=== PATIENT | male | born 1955 | race Caucasian/White ===

== ENCOUNTER 2016-04-30 09:09 | Day surgery (SDC) | payer OTHER ==
[~2016-04-30 09:09] MED LIST: ATORVASTATIN CA20 MG PO; LISINOPRIL10 MG PO; NIASPAN500 MG PO
--- NOTE | 2016-04-30 12:21 | Provider's Discharge Care Plan ---
Problem, Goal, Plan Problem List 1. Diverticulosis
--- NOTE | 2016-04-30 12:21 | Provider's Discharge Care Plan ---
Problem, Goal, Plan Problem List 1. Diverticulosis
--- NOTE | 2016-04-30 14:06 | OPERATIVE REPORT ---
DATE OF SURGERY: 04/30/2016 SURGEON: Walter Shin MD PREOPERATIVE DIAGNOSIS: 1. Colon cancer risk POSTOPERATIVE DIAGNOSES: 1. Diverticulosis coli 2. Possible colitis PROCEDURE PERFORMED: 1. Colonoscopy with biopsies ANESTHESIA: Total IV general. INDICATIONS: The patient is a 60-year-old man undergoing screening colonoscopy. SURGICAL TECHNIQUE: The patient was taken to the endoscopy suite where total IV general was administered and the patient was placed in the left lateral decubitus position. During insertion of the scope, at about 20 cm, just above the rectosigmoid junction, there were multiple small red spots in the mucosa. These were not caused by scope trauma. During withdrawal, these were sampled with the biopsy forceps. Further up the sigmoid, there were multiple diverticula. The transverse and right colon did not have diverticula. The ileocecal valve was visualized and the tip of the cecum seen. On withdrawal, the entire colon was inspected, including a retroflexed view of the rectum. There were no additional findings, and the patient left in good condition.
== END 2016-04-30 13:00 | disposition home or self-care (01) ==
LOC: OR SRH 09:09 → SCU SRH 09:12
PROVIDERS: Surgery
PROC: 0DBN8ZX Excision of Sigmoid Colon, Via Natural or Artificial Opening Endoscopic, Diagnostic (ICD-10-PCS; principal; 2016-04-30 11:00)
DX: Z12.11 Encounter for screening for malignant neoplasm of colon (principal); K57.30 Diverticulosis of large intestine without perforation or abscess without bleeding; I10 Essential (primary) hypertension; D12.7 Benign neoplasm of rectosigmoid junction
CPT/HCPCS: 29229; 29240; 50004; 60001; 82944; 83526